=== PATIENT | female | born 1990 | race Caucasian/White ===

== ENCOUNTER 2016-12-23 05:59 | Emergency (ER) | payer BC ==
[~2016-12-23] VITALS: Ht 180.3 cm; Wt 95.3 kg
[2016-12-23 06:02] VITALS: BP 141/95
== END 2016-12-23 06:22 | disposition home or self-care (01) ==
LOC: ER 05:59
DX: T70.0XXA Otitic barotrauma, initial encounter (principal); H66.93 Otitis media, unspecified, bilateral; X58.XXXA Exposure to other specified factors, initial encounter
CPT/HCPCS: 99283; A4606; Z7610